=== PATIENT | male | born 1965 | race African-American/Black ===

== ENCOUNTER 2020-10-16 13:40 | Emergency (ER) | payer OTHER ==
[~2020-10-16] VITALS: Ht 167.6 cm; Wt 88.9 kg
--- NOTE | 2020-10-16 14:00 | NUR ---
TO ER BED 4 FOR MD HOLLOWAY
--- NOTE | 2020-10-16 14:08 | NUR ---
DR LIM AT BEDSIDE
--- NOTE | 2020-10-16 14:11 | NUR ---
DR BLACKMON AT BEDSIDE FOR EVAL.
[2020-10-16] MEDS ORDERED: ACETAMINOPHEN ES 500 MG TABLET PO ONE (14:30)
[2020-10-16] MEDS ORDERED: TDAP [DIPH/PERTUSSIS/TET] 0.5 ML VIAL IM ONE ×2 (14:30→14:32)
[2020-10-16] MEDS ORDERED: IBUPROFEN 600 MG TABLET PO ONE (14:30)
[2020-10-16] MEDS ORDERED: ACETAMINOPHEN ES 500 MG TABLET ONE (14:32)
[2020-10-16] MEDS ORDERED: IBUPROFEN 600 MG TABLET ONE (14:32)
--- NOTE | 2020-10-16 14:50 | NUR ---
PT TO RADIOLOGY FOR HEAD CT SCAN VIA [facility].
--- NOTE | 2020-10-16 15:51 | NUR ---
Patient discharged to home in stable condition. Written and verbal after care instructions given. Patient verbalizes understanding of instruction.
[2020-10-16 15:54] VITALS: BP 145/98
== END 2020-10-16 15:55 | disposition home or self-care (01) ==
LOC: ER 14:22
DX: S60.211A Contusion of right wrist, initial encounter (principal); S00.01XA Abrasion of scalp, initial encounter; Y08.89XA Assault by other specified means, initial encounter; Y93.89 Activity, other specified; Y92.89 Other specified places as the place of occurrence of the external cause; Y99.8 Other external cause status
CPT/HCPCS: 70450; 73080; 73110; 90471; 90715; 99284; A6403